=== PATIENT | male | born 1990 ===

== ENCOUNTER 2017-09-21 10:05 | Day surgery (SDC) | payer OTHER ==
[~2017-09-21] VITALS: Ht 175.3 cm; Wt 73.5 kg
[~2017-09-21 10:05] MED LIST: AMOCLA875 PO; IBUP800 PO; OXYACE5T PO; PENVK500 PO; PROCODE120 PO; RXOXYACE PO
== END 2017-09-21 22:38 | disposition home or self-care (01) ==
LOC: ORSCMMR 10:05 → ORD 09-23 07:30
PROVIDERS: Surgery
PROC: 0HB8XZZ Excision of Buttock Skin, External Approach (ICD-10-PCS; principal; 2017-09-21 12:00)
DX: L92.3 Foreign body granuloma of the skin and subcutaneous tissue (principal); F17.210 Nicotine dependence, cigarettes, uncomplicated
CPT/HCPCS: 88300; J0690; J2250; J3010; J7120

== ENCOUNTER 2017-11-18 14:36 | Emergency (ER) | payer OTHER ==
[~2017-11-18] VITALS: Ht 175.3 cm; Wt 72.6 kg
[2017-11-18] MEDS ORDERED: Norco 5-325 Ta1 EACH PO (15:09)
== END 2017-11-18 15:15 | disposition home or self-care (01) ==
LOC: ER 14:36
DX: S05.01XA Injury of conjunctiva and corneal abrasion without foreign body, right eye, initial encounter (principal); H54.61 Unqualified visual loss, right eye, normal vision left eye; F17.200 Nicotine dependence, unspecified, uncomplicated; W29.4XXA Contact with nail gun, initial encounter
CPT/HCPCS: 99283